=== PATIENT | male | born 1945 ===

== ENCOUNTER → 2018-09-02 | Outpatient (CLI) | payer OTHER ==
[~2018-09-02] MED LIST: ACEASPCAF; ATOR10; CAPHYD; FLUT.05NI; HYDCHL25; SULTRIDS PO; TELM40; TIMO.5OPG
== END | disposition home or self-care (01) ==
LOC: LAB SHORT 08:44 → PLD 08:44
DX: D48.5 Neoplasm of uncertain behavior of skin (principal)
CPT/HCPCS: 88305

== ENCOUNTER → 2018-09-12 | Outpatient (CLI) | payer OTHER | END | disposition home or self-care (01) | LOC: LAB SHORT 08:20 → PLD 08:20 | DX: C44.212 Basal cell carcinoma of skin of right ear and external auricular canal (principal) | CPT/HCPCS: 88305 ==

== ENCOUNTER → 2018-10-09 | Outpatient (CLI) | payer OTHER | END | disposition home or self-care (01) | LOC: LAB 11:37 → LAB SHORT 11:37 | DX: L08.0 Pyoderma (principal) | CPT/HCPCS: 87070; 87077; 87147; 87186; 87205 ==

== ENCOUNTER → 2019-11-25 | Outpatient (CLI) | payer OTHER | END | disposition home or self-care (01) | LOC: PLD 12:15 → LAB SHORT 12:15 | DX: D48.5 Neoplasm of uncertain behavior of skin (principal) | CPT/HCPCS: 88305 ==

== ENCOUNTER → 2020-04-07 | Outpatient (CLI) | payer OTHER | LOC: PLD 15:17 → LAB SHORT 15:17 | DX: D48.5 Neoplasm of uncertain behavior of skin (principal) | CPT/HCPCS: 88305 ==

== ENCOUNTER → 2021-09-06 | Outpatient (CLI) | payer OTHER | END | disposition home or self-care (01) | LOC: PLD 07:49 → LAB SHORT 07:49 | DX: D48.5 Neoplasm of uncertain behavior of skin (principal) | CPT/HCPCS: 88305 ==